=== PATIENT | female | born 1985 | race Caucasian/White ===

== ENCOUNTER 2016-06-03 03:45 | Inpatient (IN) | payer OTHER ==
[2016-06-03] VITALS (10 sets, daily range): BP systolic 101–135; BP diastolic 56–72
[~2016-06-03] VITALS: Ht 160 cm; Wt 81.8 kg
[~2016-06-03 03:45] MED LIST: IBUPROFEN800 MG PO; NOHOMEMEDS; PRENATAL ONE T1 EACH PO; PROMETHAZINE HC25 M1 PO; SYNTHROID50 MCG PO; VICODIN 5-3001 EACH PO; ZOFRAN4 MG PO
[2016-06-03 05:34] LABS: EOSINOPHIL (%) 0.6 % (0-5); EOSINOPHIL COUNT 0.1 K/uL (0-0.3); HEMATOCRIT 31.6 % (36.0-46.0); IMMATURE GRANULOCYTE COUNT 0.1 K/uL; INSTRUMENT ABS NEUTROPHIL CT 10.2 K/uL; LYMPHOCYTE COUNT 1.3 K/uL (1.0-2.8); MCH 24.6 PG (29.0-34.0); MCHC 30.4 G/DL (30.0-36.0); MEAN PLAT.VOLUME 10.3 uM^3 (9.5-12.4); MONOCYTE (%) 6.7 % (3-12); MONOCYTE COUNT 0.8 K/uL (0-0.8); NEUTROPHIL COUNT 10.2 K/uL (1.8-6.4); PLATELET COUNT 273 K/uL (156-360); RBC DIS.WIDTH-SD 43.8 % (39-53); WHITE BLOOD COUNT 12.6 K/uL (4.1-10.2)
[2016-06-04 06:15] LABS: EOSINOPHIL (%) 1.3 % (0-5); EOSINOPHIL COUNT 0.1 K/uL (0-0.3); HEMATOCRIT 28.9 % (36.0-46.0); IMMATURE GRANULOCYTE (%) 0.9 % (0.0-0.7); IMMATURE GRANULOCYTE COUNT 0.1 K/uL; INSTRUMENT ABS NEUTROPHIL CT 6.3 K/uL; LYMPHOCYTE COUNT 1.9 K/uL (1.0-2.8); MCH 24.1 PG (29.0-34.0); MCHC 29.8 G/DL (30.0-36.0); MONOCYTE (%) 8.8 % (3-12); MONOCYTE COUNT 0.8 K/uL (0-0.8); NEUTROPHIL (%) 68.6 % (45-76); NEUTROPHIL COUNT 6.3 K/uL (1.8-6.4); PLATELET COUNT 202 K/uL (156-360); RBC DIS.WIDTH-CV 14.9 % (11.8-14.6); RBC DIS.WIDTH-SD 43.3 % (39-53); RED BLOOD COUNT 3.57 M/uL (3.80-5.20); WHITE BLOOD COUNT 9.2 K/uL (4.1-10.2)
[2016-06-04 07:14] VITALS: BP 106/56
[2016-06-04 15:00] VITALS: BP 114/62
[2016-06-04 22:34] VITALS: BP 113/50
[2016-06-05 06:17] VITALS: BP 108/57
[2016-06-05] MEDS ORDERED: BREAST PUMP MC (09:32)
== END 2016-06-05 12:30 | disposition home or self-care (01) | DRG 775 ==
LOC: LDRP-OP 03:45 → 2WEST 03:46 → LDRP-OP 09:46 → 2WEST 06-05 12:30 → LDRP-OP 06-25 14:33
PROVIDERS: Advanced Practice Midwife
PROC: 10E0XZZ Delivery of Products of Conception, External Approach (ICD-10-PCS; principal; 2016-06-03)
PROC: 10907ZC Drainage of Amniotic Fluid, Therapeutic from Products of Conception, Via Natural or Artificial Opening (ICD-10-PCS; 2016-06-03)
DX: O99.284 Endocrine, nutritional and metabolic diseases complicating childbirth (principal); Z37.0 Single live birth; E03.9 Hypothyroidism, unspecified; Z3A.41 41 weeks gestation of pregnancy; O48.0 Post-term pregnancy; D50.8 Other iron deficiency anemias; O99.013 Anemia complicating pregnancy, third trimester
CPT/HCPCS: 85025